=== PATIENT | female | born 1950 | race Caucasian/White ===

== ENCOUNTER 2018-12-04 18:51 | Emergency (ER) | payer MEDICARE ==
[~2018-12-04] VITALS: Ht 152.4 cm; Wt 65.8 kg
[~2018-12-04 18:51] MED LIST: ACET325 PO; ALPR.5 PO; BETA GEST PO; Budeprion Xl300 MG PO; CYCL10 PO; HYDACE10B PO; HYDSUL200 PO; IBUP600 PO; Keflex500 MG PO; LEUC5 PO; LOSARTAN-HCTZ1 EACH PO; METH10 PO; METTREX2.5 PO; OMEP20ER PO; PROLIA60 MG/1 ML SQ; Vitamin D2000 UNIT PO; Voltaren100 GM TP
== END 2018-12-04 21:05 | disposition home or self-care (01) ==
LOC: ER 18:51
DX: S81.812A Laceration without foreign body, left lower leg, initial encounter (principal); Z88.0 Allergy status to penicillin; Z88.2 Allergy status to sulfonamides; W45.8XXA Other foreign body or object entering through skin, initial encounter
CPT/HCPCS: 12004; 90471; 90714; 99282-25

== ENCOUNTER → 2018-12-09 | Outpatient (CLI) | payer MEDICARE | END | disposition home or self-care (01) | LOC: LAB SHORT 12:27 → LAB EV 12:27 | DX: L08.9 Local infection of the skin and subcutaneous tissue, unspecified (principal) | CPT/HCPCS: 87070; 87077; 87147; 87186; 87205 ==

== ENCOUNTER → 2018-12-31 | Outpatient (CLI) | payer MEDICARE ==
[2018-12-31 14:08] LABS: Anion Gap 8 mmol/L (6-16); Blood Urea Nitrogen 24 mg/dL (8-24); Bun/Creatinine Ratio 31.2 (12.0-20.0); CO2, Blood 31 mmol/L (21-32); Calcium, Blood 9.7 mg/dL (8.5-10.1); Chloride, Blood 103 mmol/L (98-108); Creatinine, Blood 0.77 mg/dL (0.40-1.00); Glomerular Filtration Rate >60 (60-); Glucose, Blood 86 mg/dL (70-99); Potassium, Blood 3.7 mmol/L (3.5-5.5); Sodium, Blood 142 mmol/L (136-145)
== END | disposition home or self-care (01) ==
LOC: LAB EV 13:52 → LAB SHORT 13:52
PROVIDERS: Physician Assistant
DX: B02.9 Zoster without complications (principal)
CPT/HCPCS: 80048

== ENCOUNTER 2019-01-07 12:02 | Day surgery (SDC) | payer MEDICARE | END 2019-01-07 23:09 | disposition home or self-care (01) | LOC: WOUND 12:02 | DX: L97.821 Non-pressure chronic ulcer of other part of left lower leg limited to breakdown of skin (principal); I87.2 Venous insufficiency (chronic) (peripheral); I10 Essential (primary) hypertension; M32.9 Systemic lupus erythematosus, unspecified; M06.9 Rheumatoid arthritis, unspecified | CPT/HCPCS: G0463 ==

== ENCOUNTER 2019-01-12 13:58 | Day surgery (SDC) | payer MEDICARE | END 2019-01-12 22:51 | disposition home or self-care (01) | LOC: WOUND 13:58 | PROC: 0JBP0ZZ Excision of Left Lower Leg Subcutaneous Tissue and Fascia, Open Approach (ICD-10-PCS; principal; 2019-01-12) | DX: L97.821 Non-pressure chronic ulcer of other part of left lower leg limited to breakdown of skin (principal); I87.2 Venous insufficiency (chronic) (peripheral); D64.9 Anemia, unspecified; I10 Essential (primary) hypertension; L93.0 Discoid lupus erythematosus; M06.9 Rheumatoid arthritis, unspecified; M19.90 Unspecified osteoarthritis, unspecified site; G62.9 Polyneuropathy, unspecified; H26.9 Unspecified cataract ==

== ENCOUNTER 2019-01-22 10:06 | Day surgery (SDC) | payer MEDICARE | END 2019-01-22 22:57 | disposition home or self-care (01) | LOC: WOUND 10:06 | PROC: 0HDLXZZ Extraction of Left Lower Leg Skin, External Approach (ICD-10-PCS; principal; 2019-01-22) | DX: L97.822 Non-pressure chronic ulcer of other part of left lower leg with fat layer exposed (principal); I87.2 Venous insufficiency (chronic) (peripheral); L93.0 Discoid lupus erythematosus; I10 Essential (primary) hypertension; M06.9 Rheumatoid arthritis, unspecified; Z79.899 Other long term (current) drug therapy ==

== ENCOUNTER 2019-01-30 01:02 | Day surgery (SDC) | payer MEDICARE | END 2019-01-30 23:49 | disposition home or self-care (01) | LOC: WOUND 01:02 | DX: L97.822 Non-pressure chronic ulcer of other part of left lower leg with fat layer exposed (principal); M06.9 Rheumatoid arthritis, unspecified; I87.2 Venous insufficiency (chronic) (peripheral); I10 Essential (primary) hypertension ==

== ENCOUNTER 2019-02-13 09:52 | Day surgery (SDC) | payer MEDICARE | END 2019-02-13 23:26 | disposition home or self-care (01) | LOC: WOUND 09:52 | DX: L97.822 Non-pressure chronic ulcer of other part of left lower leg with fat layer exposed (principal); I87.2 Venous insufficiency (chronic) (peripheral); I10 Essential (primary) hypertension; D64.9 Anemia, unspecified ==

== ENCOUNTER 2019-02-20 10:10 | Day surgery (SDC) | payer MEDICARE | END 2019-02-20 23:24 | disposition home or self-care (01) | LOC: WOUND 10:10 | DX: L97.822 Non-pressure chronic ulcer of other part of left lower leg with fat layer exposed (principal); I87.2 Venous insufficiency (chronic) (peripheral); I10 Essential (primary) hypertension; M06.9 Rheumatoid arthritis, unspecified ==

== ENCOUNTER 2019-03-06 10:07 | Day surgery (SDC) | payer MEDICARE | END 2019-03-06 23:15 | disposition home or self-care (01) | LOC: WOUND 10:07 | DX: L97.821 Non-pressure chronic ulcer of other part of left lower leg limited to breakdown of skin (principal); I87.2 Venous insufficiency (chronic) (peripheral); I10 Essential (primary) hypertension | CPT/HCPCS: G0463 ==

== ENCOUNTER → 2019-08-19 | Outpatient (CLI) | payer MEDICARE | END | disposition home or self-care (01) | LOC: LAB SHORT 14:41 → PLD 14:41 | DX: L81.9 Disorder of pigmentation, unspecified (principal); L30.8 Other specified dermatitis | CPT/HCPCS: 88305 ==

== ENCOUNTER 2020-03-16 06:14 | Day surgery (SDC) | payer MEDICARE ==
[~2020-03-16] VITALS: Ht 152.4 cm; Wt 54.2 kg
[~2020-03-16 06:14] MED LIST changes: +BUTALB-ACETAMI1 EAC5 PO; +Cymbalta20 MG PT; -METTREX2.5 PO; +METTREX2.5 SC; +PRED20 PO; +Remicade100 MG IV; +TRAZ50 PO
--- NOTE | 2020-03-16 07:13 | NUR ---
03/16/20 0713 Alicia Doss CALL LIGHT WITHIN REACH. FAMILY AT BEDSIDE.
== END 2020-03-16 08:26 | disposition home or self-care (01) ==
LOC: ORSCSDS 06:14
PROVIDERS: Ophthalmology
PROC: 08RJ3JZ Replacement of Right Lens with Synthetic Substitute, Percutaneous Approach (ICD-10-PCS; principal; 2020-03-16 07:30)
DX: H25.11 Age-related nuclear cataract, right eye (principal); I10 Essential (primary) hypertension; Z79.899 Other long term (current) drug therapy
CPT/HCPCS: J2001; J2250; J3010; J3301; J7040; V2632

== ENCOUNTER 2020-04-13 06:20 | Day surgery (SDC) | payer MEDICARE | END 2020-04-13 08:07 | disposition home or self-care (01) | LOC: ORSCSDS 06:20 | PROC: 08RK3JZ Replacement of Left Lens with Synthetic Substitute, Percutaneous Approach (ICD-10-PCS; principal; 2020-04-13) | DX: H25.12 Age-related nuclear cataract, left eye (principal); I10 Essential (primary) hypertension; K21.9 Gastro-esophageal reflux disease without esophagitis; Z79.899 Other long term (current) drug therapy ==

== ENCOUNTER 2021-04-03 02:36 | Day surgery (SDC) | payer MEDICARE ==
[~2021-04-03 02:36] MED LIST changes: +ALPR1 PO; +BUPR150T2 PO; +BUTALB-CAFF-AC1 EACH PO; +FOLI1 PO; +HYDROCHLOROTH12.5 MG PO; +LOSA50 PO; +Norco 10-325 T1 EACH PO; +PROLIA60 MG/1 ML; +RENFLEXIS100 MG; +XATMEP2.5 MG/1 M PO
== END 2021-04-03 23:02 | disposition home or self-care (01) ==
LOC: WOUND 02:36
DX: L97.821 Non-pressure chronic ulcer of other part of left lower leg limited to breakdown of skin (principal); I87.2 Venous insufficiency (chronic) (peripheral); I10 Essential (primary) hypertension
CPT/HCPCS: A9270; G0463

== ENCOUNTER 2021-04-10 05:02 | Day surgery (SDC) | payer MEDICARE | END 2021-04-10 23:38 | disposition home or self-care (01) | LOC: WOUND 05:02 | DX: L97.822 Non-pressure chronic ulcer of other part of left lower leg with fat layer exposed (principal); I87.2 Venous insufficiency (chronic) (peripheral); I10 Essential (primary) hypertension | CPT/HCPCS: A9270 ==

== ENCOUNTER 2021-04-19 09:49 | Day surgery (SDC) | payer MEDICARE | END 2021-04-19 23:06 | disposition home or self-care (01) | LOC: WOUND 09:49 | DX: L97.821 Non-pressure chronic ulcer of other part of left lower leg limited to breakdown of skin (principal); I87.2 Venous insufficiency (chronic) (peripheral); I10 Essential (primary) hypertension; M06.9 Rheumatoid arthritis, unspecified; Z88.2 Allergy status to sulfonamides; Z88.8 Allergy status to other drugs, medicaments and biological substances | CPT/HCPCS: A9270; G0463 ==

== ENCOUNTER 2021-05-03 04:38 | Day surgery (SDC) | payer MEDICARE | END 2021-05-03 23:00 | disposition home or self-care (01) | LOC: WOUND 04:38 | DX: L97.822 Non-pressure chronic ulcer of other part of left lower leg with fat layer exposed (principal); I87.2 Venous insufficiency (chronic) (peripheral); I10 Essential (primary) hypertension; M06.9 Rheumatoid arthritis, unspecified; Z98.1 Arthrodesis status; Z79.52 Long term (current) use of systemic steroids; Z79.899 Other long term (current) drug therapy | CPT/HCPCS: A9270 ==

== ENCOUNTER 2021-05-10 01:12 | Day surgery (SDC) | payer MEDICARE | END 2021-05-10 23:19 | disposition home or self-care (01) | LOC: WOUND 01:12 | DX: L97.822 Non-pressure chronic ulcer of other part of left lower leg with fat layer exposed (principal); I87.2 Venous insufficiency (chronic) (peripheral); I10 Essential (primary) hypertension; M06.9 Rheumatoid arthritis, unspecified; Z88.0 Allergy status to penicillin; Z88.2 Allergy status to sulfonamides; Z88.6 Allergy status to analgesic agent; Z88.8 Allergy status to other drugs, medicaments and biological substances | CPT/HCPCS: A9270; G0463 ==

== ENCOUNTER 2021-05-17 02:28 | Day surgery (SDC) | payer MEDICARE | END 2021-05-17 12:00 | disposition home or self-care (01) | LOC: WOUND 02:28 | DX: L97.821 Non-pressure chronic ulcer of other part of left lower leg limited to breakdown of skin (principal); I87.2 Venous insufficiency (chronic) (peripheral) | CPT/HCPCS: A9270 ==

== ENCOUNTER 2021-05-31 03:20 | Day surgery (SDC) | payer MEDICARE | END 2021-05-31 23:52 | disposition home or self-care (01) | LOC: WOUND 03:20 | DX: L97.821 Non-pressure chronic ulcer of other part of left lower leg limited to breakdown of skin (principal); I87.2 Venous insufficiency (chronic) (peripheral); I10 Essential (primary) hypertension | CPT/HCPCS: A9270; G0463 ==

== ENCOUNTER 2023-05-17 04:46 | Day surgery (SDC) | payer MEDICARE | END 2023-05-17 22:52 | disposition home or self-care (01) | LOC: WOUND 04:46 | DX: L97.822 Non-pressure chronic ulcer of other part of left lower leg with fat layer exposed (principal); I87.2 Venous insufficiency (chronic) (peripheral); I10 Essential (primary) hypertension; M06.9 Rheumatoid arthritis, unspecified; Z88.0 Allergy status to penicillin; Z88.2 Allergy status to sulfonamides; Z88.8 Allergy status to other drugs, medicaments and biological substances | CPT/HCPCS: A9270; G0463 ==

== ENCOUNTER 2023-05-24 01:55 | Day surgery (SDC) | payer MEDICARE | END 2023-05-24 22:50 | disposition home or self-care (01) | LOC: WOUND 01:55 | DX: L97.822 Non-pressure chronic ulcer of other part of left lower leg with fat layer exposed (principal); E89.820 Postprocedural hematoma of an endocrine system organ or structure following an endocrine system procedure; I73.9 Peripheral vascular disease, unspecified; I10 Essential (primary) hypertension; M05.70 Rheumatoid arthritis with rheumatoid factor of unspecified site without organ or systems involvement; L93.0 Discoid lupus erythematosus; M06.9 Rheumatoid arthritis, unspecified | CPT/HCPCS: A9270 ==

== ENCOUNTER 2023-06-03 01:52 | Day surgery (SDC) | payer MEDICARE | END 2023-06-03 23:03 | disposition home or self-care (01) | LOC: WOUND 01:52 | DX: L97.822 Non-pressure chronic ulcer of other part of left lower leg with fat layer exposed (principal); L03.115 Cellulitis of right lower limb; L97.812 Non-pressure chronic ulcer of other part of right lower leg with fat layer exposed; E89.820 Postprocedural hematoma of an endocrine system organ or structure following an endocrine system procedure; I73.9 Peripheral vascular disease, unspecified; I10 Essential (primary) hypertension; M05.70 Rheumatoid arthritis with rheumatoid factor of unspecified site without organ or systems involvement | CPT/HCPCS: A9270; G0463 ==

== ENCOUNTER 2023-06-11 13:43 | Inpatient (IN) | payer MEDICARE ==
[~2023-06-11] VITALS: Ht 149.9 cm; Wt 47.9 kg
[2023-06-11 15:05] VITALS: BP 130/71
[2023-06-11] MEDS ORDERED: ALPR.5 PO (15:58)
[2023-06-11] MEDS ORDERED: FOLI1 PO (15:59)
[2023-06-11] MEDS ORDERED: HYDCHL50 PO (16:00)
[2023-06-11] MEDS ORDERED: Hydrocodone-Acetamin PO (16:01)
[2023-06-11] MEDS ORDERED: PLAQUENIL200 M1 PO (16:02)
[2023-06-11] MEDS ORDERED: LOSARTAN POTAS100 M1 PO (16:03)
[2023-06-11] MEDS ORDERED: DOLOPHINE HCL10 MG PO (16:04)
[2023-06-11] MEDS ORDERED: OMEP20ER PO (16:05)
[2023-06-11] MEDS ORDERED: ONDA4ODT MM (16:06)
[2023-06-11] MEDS ORDERED: DELTASONE20 MG PO (16:07)
[2023-06-11 16:16] LABS: Hematocrit 30.7 % (33.0-51.0); Hemoglobin 9.2 g/dL (11.5-16.0); Mean Corpuscular HGB 27.4 pg (26.0-34.0); Mean Corpuscular Volume 91 fL (80-100); NRBC ABSOLUTE 0.02 K/mm3 (0.00-0.02); NRBC Auto 0.1 /100 WBC (0.0-0.2); Platelet Count 437 K/mm3 (150-400); RDW Standard Deviation 55.9 fL (35.1-46.3); Red Blood Cell Count 3.36 M/mm3 (3.80-5.20); White Blood Cell Count 19.21 K/mm3 (4.00-11.30)
[2023-06-11 16:39] LABS: BASOPHILS PERCENT MAN 0 % (0-2); EOSINOPHILS PERCENT MAN 0 % (0-6); LYMPHOCYTES ABSOLUTE MAN 0.38 K/mm3 (0.84-5.20); LYMPHOCYTES PERCENT MAN 2 % (21-46); METAMYELOCYTE ABSOLUTE MAN 0.19 K/mm3 (0.00-0.00); METAMYELOCYTE PERCENT MAN 1 % (0-0); MONOCYTES ABSOLUTE MAN 0.96 K/mm3 (0.16-1.47); MONOCYTES PERCENT MAN 5 % (4-13); MYELOCYTE ABSOLUTE MAN 1.15 K/mm3 (0.00-0.00); MYELOCYTE PERCENT MAN 6 % (0-0); NEUTROPHILS ABSOLUTE MAN 16.52 K/mm3 (1.96-9.15); SEG NEUTROPHILS PERCENT MAN 86 % (41-73); TOTAL CELLS COUNTED 100
[2023-06-11 16:45] LABS: Albumin, Blood 2.6 g/dL (3.4-5.0); Albumin/Globulin Ratio 0.6 (0.8-1.8); Bilirubin, Total 0.3 mg/dL (0.1-1.0); Bun/Creatinine Ratio 30.6 (12.0-20.0); C-REACTIVE PROTEIN, EXT RANGE 16.1 mg/dL (0.000-0.300); Creatinine, Blood 0.65 mg/dL (0.40-1.00); Globulin, Blood 4.1 g/dL (2.2-4.0); Potassium, Blood 3.8 mmol/L (3.5-5.5); Total Protein, Blood 6.7 g/dL (6.4-8.2)
--- NOTE | 2023-06-11 18:11 | NUR ---
SHIFT SUMMARY; PATIENT IS LATE ADMIT THIS AFTERNOON. SHE HAS CELLULITIS OF BOTH BILATERAL LOWER EXTREMITIES WORSE ON RIGHT. DRESSING CHANGES DONE WHEN (ADMITTING MD) IN ROOM. WOUND CULTURES ORDERED AND COLLECTED. PATIENT IS AO X 4 ON ARRIVAL IN WHEEL CHAIR. SHE IS VERY PAINFULL AND UNABLE TO STAND WITHOUT ASSIST AND MUST BE TURNED AND MOVED UP IN BED. 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 SHE SAYS HER OTHER SHOULDER IS PAINFULL BUT DOES NOT REMEMBER WHAT SHE DID TO IT. DECISION TO PLACE PATIENT ON BEDREST SINCE SHE CANNOT TURN HERSELF AND IT HURTS FOR HER TO SIT UP TO LONG. PICTURES OF BOTH LOWER LIMBS ARE IN CHART.
[2023-06-11 19:24] VITALS: BP 122/64
[2023-06-12 03:33] VITALS: BP 117/64
--- NOTE | 2023-06-12 04:22 | NUR ---
SHIFT SUMMARY ADMITTED FOR BLE CELLULITIS. DNR CODE. IV ANTIB RX ARE SCHEDULED. SHE LIVES WITH HER AND PLANS TO RETURN THERE WHEN STABLE FOR DC. SHE HAS A HX OF TAKING METHOTREXATE, AND STILL ON PREDNISONE. HX OF MULTIPLE SURGERIES, CHRONIC PAIN, DEGENERATIVE JOINTS, RA, AND LUPUS.
[2023-06-12 05:32] LABS: Hematocrit 26.8 % (33.0-51.0); Hemoglobin 7.9 g/dL (11.5-16.0); Mean Corpuscular HGB 27.1 pg (26.0-34.0); Mean Corpuscular HGB Conc 29.5 g/dL (31.5-36.5); Mean Corpuscular Volume 92 fL (80-100); Mean Platelet Volume 11.4 fL (9.1-12.4); NRBC ABSOLUTE 0.03 K/mm3 (0.00-0.02); NRBC Auto 0.2 /100 WBC (0.0-0.2); Platelet Count 391 K/mm3 (150-400); RDW Coefficient Variation 16.9 % (11.7-14.2); RDW Standard Deviation 55.7 fL (35.1-46.3); Red Blood Cell Count 2.91 M/mm3 (3.80-5.20); White Blood Cell Count 14.28 K/mm3 (4.00-11.30)
[2023-06-12 05:48] LABS: Albumin, Blood 2.2 g/dL (3.4-5.0); Albumin/Globulin Ratio 0.6 (0.8-1.8); Bilirubin, Total 0.3 mg/dL (0.1-1.0); Bun/Creatinine Ratio 25.5 (12.0-20.0); C-REACTIVE PROTEIN, EXT RANGE 13.1 mg/dL (0.000-0.300); Calcium, Blood 8.4 mg/dL (8.5-10.1); Creatinine, Blood 0.63 mg/dL (0.40-1.00); Globulin, Blood 3.5 g/dL (2.2-4.0); Potassium, Blood 3.7 mmol/L (3.5-5.5); Total Protein, Blood 5.7 g/dL (6.4-8.2)
[2023-06-12 06:07] LABS: BAND PERCENT MAN 1 % (0-8); BASOPHILS ABSOLUTE MAN 0.14 K/mm3 (0.00-0.23); BASOPHILS PERCENT MAN 1 % (0-2); EOSINOPHILS PERCENT MAN 0 % (0-6); LYMPHOCYTES ABSOLUTE MAN 0.71 K/mm3 (0.84-5.20); LYMPHOCYTES PERCENT MAN 5 % (21-46); METAMYELOCYTE ABSOLUTE MAN 0.14 K/mm3 (0.00-0.00); METAMYELOCYTE PERCENT MAN 1 % (0-0); MONOCYTES ABSOLUTE MAN 0.99 K/mm3 (0.16-1.47); MONOCYTES PERCENT MAN 7 % (4-13); NEUTROPHILS ABSOLUTE MAN 12.28 K/mm3 (1.96-9.15); SEG NEUTROPHILS PERCENT MAN 85 % (41-73); TOTAL CELLS COUNTED 100
[2023-06-12 07:08] VITALS: BP 110/62
[2023-06-12 09:03] VITALS: BP 109/58
[2023-06-12 15:21] VITALS: BP 127/69
--- NOTE | 2023-06-12 18:00 | NUR ---
SHIFT SUMMARY- PT ALERT AND ORIENTED AND IS ABLE TO DIRECT HER CARE NEEDS. PT CALLS APPROPRIATELY. PT IS NOW A 1PA WITH TRANSFERS TO THE [facility]. IV INFILTRATED IN THE RIGHT AC AND THE PT ACCIDENTALLY PULLED IT. NEW IV PLACED IN THE LEFT AC, GOOD BLOOD RETURN FLUSHES WELL. PT IS CURRENTLY SITTING UP IN THE CHAIR WITH THE CALL LIGHT IN REACH EATING HER DINNER, SHE WORKED WITH ANDI FROM [facility]YSICAL [facility]ER[facility] THIS EVENING. THIS RN ENCOURAGED HER TO STAY UP IN THE CHAIR TO EAT THEN STAFF CAN ASSIST HER BACK TO BED. NO CURRENT S&S OF DISTRESS.
--- NOTE | 2023-06-12 18:27 | NUR ---
"Spiritual Care Attempted | Pt. Request Pt. is sitting up in a chair and intiially welcomes my visit. As introductions were being made, family member arrived to visit. Pt. request that one of the chaplains visit her on ."
[2023-06-12 19:41] VITALS: BP 139/80
[2023-06-13 03:35] LABS: Vancomycin, Trough 14.7 ug/mL (5.0-10.0)
[2023-06-13 03:54] LABS: Creatinine, Blood 0.64 mg/dL (0.40-1.00)
[2023-06-13 04:25] VITALS: BP 125/72
--- NOTE | 2023-06-13 07:24 | NUR ---
SHIFT SUMMARY ADMITTED FOR BLE CELLULITIS. DNR CODE. IV ANTIB RX ARE SCHEDULED. WOUND CARE IS CONSULTED. SHE IS A&O X4. AND NOW A STANDBY ASSIST TO BSC. HER MOVEMENT HAS DRAMATICALLY IMPROVED. SHE IS ON RA. REGULAR DIET. SHE WILL RETURN HOME WITH HER WHEN STABLE. PAIN RX GIVEN
[2023-06-13 07:58] VITALS: BP 125/70
[2023-06-13 08:51] LABS: Albumin, Blood 2.4 g/dL (3.4-5.0); Albumin/Globulin Ratio 0.6 (0.8-1.8); Bilirubin, Total 0.2 mg/dL (0.1-1.0); Bun/Creatinine Ratio 20.9 (12.0-20.0); C-REACTIVE PROTEIN, EXT RANGE 8.44 mg/dL (0.000-0.300); Calcium, Blood 9.1 mg/dL (8.5-10.1); Creatinine, Blood 0.62 mg/dL (0.40-1.00); Globulin, Blood 3.8 g/dL (2.2-4.0); Potassium, Blood 3.8 mmol/L (3.5-5.5); Total Protein, Blood 6.2 g/dL (6.4-8.2)
[2023-06-13 09:07] LABS: Hematocrit 30.8 % (33.0-51.0); Hemoglobin 9.2 g/dL (11.5-16.0); Mean Corpuscular HGB 27.1 pg (26.0-34.0); Mean Corpuscular HGB Conc 29.9 g/dL (31.5-36.5); Mean Corpuscular Volume 91 fL (80-100); Mean Platelet Volume 10.9 fL (9.1-12.4); NRBC ABSOLUTE 0.05 K/mm3 (0.00-0.02); NRBC Auto 0.4 /100 WBC (0.0-0.2); Platelet Count 494 K/mm3 (150-400); RDW Coefficient Variation 17.1 % (11.7-14.2); RDW Standard Deviation 56.4 fL (35.1-46.3); Red Blood Cell Count 3.39 M/mm3 (3.80-5.20); White Blood Cell Count 13.93 K/mm3 (4.00-11.30)
[2023-06-13 10:27] LABS: BASOPHILS PERCENT MAN 0 % (0-2); EOSINOPHILS PERCENT MAN 0 % (0-6); LYMPHOCYTES ABSOLUTE MAN 1.25 K/mm3 (0.84-5.20); LYMPHOCYTES PERCENT MAN 9 % (21-46); METAMYELOCYTE ABSOLUTE MAN 0.13 K/mm3 (0.00-0.00); METAMYELOCYTE PERCENT MAN 1 % (0-0); MONOCYTES ABSOLUTE MAN 0.41 K/mm3 (0.16-1.47); MONOCYTES PERCENT MAN 3 % (4-13); MYELOCYTE ABSOLUTE MAN 0.55 K/mm3 (0.00-0.00); MYELOCYTE PERCENT MAN 4 % (0-0); NEUTROPHILS ABSOLUTE MAN 11.56 K/mm3 (1.96-9.15); SEG NEUTROPHILS PERCENT MAN 83 % (41-73); TOTAL CELLS COUNTED 100
--- NOTE | 2023-06-13 10:32 | NUR ---
CALLED DR HIGH- PT METHADONE DOSE AT HOME IS 20MG PO TID HERE SHE HAS BEEN RECIEVING 10MG PO TID. PT ALSO HAS NORCO AT HOME Q4. PT ASKED ABOUT THE DOSE ON THE METHADONE THIS MORNING. SPOKE TO AND THE MED ORDER WAS CHANGED TO MATCH THE PT HOME DOSE.
[2023-06-13 15:21] VITALS: BP 122/66
--- NOTE | 2023-06-13 18:47 | NUR ---
SHIFT SUMMARY- PT HAD WOUND CARE TO SEE HER TODAY. THEY INITIATED WOUND CARE WITH [facility]. PT HAS HAD A LOT OF ACHES AND DISCOMFORT TODAY. MEDICATED WITH NORCO TWICE. SPOKE TO MD, HOME DOSE OF METHEDONE WAS ORDERED TODAY. PT IS CURRENTLY SITTING UP IN THE CHAIR EATING DINNER, FAMILY AT THE BEDSIDE. PT WOULD LIKE XANAX WITH EVENING MEDS, SHE HAS MENTIONED FEELING ANXIOUS THIS AFTERNOON HOWEVER HER XANAX ORDER IS FOR SLEEP.
[2023-06-13 19:50] VITALS: BP 114/64
[2023-06-14 03:03] VITALS: BP 122/68
--- NOTE | 2023-06-14 04:00 | NUR ---
SHIFT SUMMARY PT A&O 3-4 AND RESPONDS APPROPRIATELY TO QUESTIONS. USES CALL LIGHT APPROPRIATELY. PT RECEIVED IV ANTIBIOTICS AND TOLERATED IINTERVENTION WELL. PT TO HAVE POWERGLIDE INSERTED. NO ACUTE EVENTS DURING SHIFT. VSS. PT LEFT IN A POSITION OF SAFETY WITH FALL PREVENTIONS IN PLACE AND CALL LIGHT WITHIN REACH.
[2023-06-14 05:14] LABS: Hematocrit 28.3 % (33.0-51.0); Hemoglobin 8.5 g/dL (11.5-16.0); Mean Corpuscular HGB 27.5 pg (26.0-34.0); Mean Corpuscular Volume 92 fL (80-100); Mean Platelet Volume 11.3 fL (9.1-12.4); NRBC ABSOLUTE 0.06 K/mm3 (0.00-0.02); NRBC Auto 0.5 /100 WBC (0.0-0.2); Platelet Count 442 K/mm3 (150-400); Red Blood Cell Count 3.09 M/mm3 (3.80-5.20); White Blood Cell Count 12.96 K/mm3 (4.00-11.30)
[2023-06-14 06:04] LABS: Bun/Creatinine Ratio 21.7 (12.0-20.0); C-REACTIVE PROTEIN, EXT RANGE 6.27 mg/dL (0.000-0.300); Calcium, Blood 8.9 mg/dL (8.5-10.1); Creatinine, Blood 0.65 mg/dL (0.40-1.00); Potassium, Blood 3.4 mmol/L (3.5-5.5)
[2023-06-14 07:49] VITALS: BP 99/59
[2023-06-14 08:07] LABS: BAND PERCENT MAN 1 % (0-8); BASOPHILS PERCENT MAN 0 % (0-2); EOSINOPHILS PERCENT MAN 0 % (0-6); LYMPHOCYTES ABSOLUTE MAN 0.77 K/mm3 (0.84-5.20); LYMPHOCYTES PERCENT MAN 6 % (21-46); MONOCYTES ABSOLUTE MAN 1.03 K/mm3 (0.16-1.47); MONOCYTES PERCENT MAN 8 % (4-13); MYELOCYTE ABSOLUTE MAN 0.25 K/mm3 (0.00-0.00); MYELOCYTE PERCENT MAN 2 % (0-0); NEUTROPHILS ABSOLUTE MAN 10.88 K/mm3 (1.96-9.15); SEG NEUTROPHILS PERCENT MAN 83 % (41-73); TOTAL CELLS COUNTED 100
[2023-06-14 11:44] LABS: Influenza A, PCR NEGATIVE (NEGATIVE); Influenza B, PCR NEGATIVE (NEGATIVE); Resp Syncytial Virus, PCR NEGATIVE (NEGATIVE); SARS-Cov-2 (COVID-19) PCR, MMC NEGATIVE (NEGATIVE)
[2023-06-14] MEDS ORDERED: PRED5 PO (12:16)
[2023-06-14] MEDS ORDERED: CEFAZOLIN SODIUM1 G1 IV (12:17)
[2023-06-14 14:10] VITALS: BP 118/57
--- NOTE | 2023-06-14 16:37 | NUR ---
DISCHARGE SUMMARY: PT DISCHARGED TO [facility]. GAVE REPORT TO CLARA RUIZ. PT PICKED UP BY [facility] [employer]. ASSISTED PT WITH GETTING DRESSED AND PACKING HER BELONGINGS. PT SENT WITH PAPERWORK FOR UV[facility].
[2023-06-16 11:22] LABS: HEMOGLOBIN A1C 6.1 % (4.8-5.6)
== END 2023-06-14 16:27 | DRG 603 ==
LOC: MEDS 13:43 → ENPENDDIS 06-14 11:38 → MEDS 06-14 16:27
PROVIDERS: Internal Medicine; ADMIT Family Medicine
DX: L03.115 Cellulitis of right lower limb (principal); L97.929 Non-pressure chronic ulcer of unspecified part of left lower leg with unspecified severity; L97.919 Non-pressure chronic ulcer of unspecified part of right lower leg with unspecified severity; D84.821 Immunodeficiency due to drugs; I10 Essential (primary) hypertension; M06.9 Rheumatoid arthritis, unspecified; M32.9 Systemic lupus erythematosus, unspecified; Z66 Do not resuscitate; T38.0X5A Adverse effect of glucocorticoids and synthetic analogues, initial encounter; B95.61 Methicillin susceptible Staphylococcus aureus infection as the cause of diseases classified elsewhere; M15.9 Polyosteoarthritis, unspecified; G89.4 Chronic pain syndrome; F41.9 Anxiety disorder, unspecified; M81.0 Age-related osteoporosis without current pathological fracture; E55.9 Vitamin D deficiency, unspecified; G43.909 Migraine, unspecified, not intractable, without status migrainosus; F32.A Depression, unspecified; Z96.611 Presence of right artificial shoulder joint; Z88.8 Allergy status to other drugs, medicaments and biological substances; Z98.1 Arthrodesis status; Z88.0 Allergy status to penicillin; Z88.2 Allergy status to sulfonamides; Z88.6 Allergy status to analgesic agent; Z79.52 Long term (current) use of systemic steroids; Z79.891 Long term (current) use of opiate analgesic; Z79.620 Long term (current) use of immunosuppressive biologic; Z79.631 Long term (current) use of antimetabolite agent; Z11.52 Encounter for screening for COVID-19
CPT/HCPCS: 0241U; 36415; 80048; 80053; 80202; 82565; 83036; 85025; 85651; 86140; 87070; 87075; 87077; 87147; 87186; 87205; 97110; 97112; 97116; 97162; 97165; 97530; 97535; A9270; J0690; J0692; J1650; J3370; J7030; J7512

== ENCOUNTER 2023-07-01 00:34 | Day surgery (SDC) | payer MEDICARE ==
[~2023-07-01 00:34] MED LIST changes: +CEFAZOLIN SODIUM1 G1 IV; +DELTASONE20 MG PO; +DOLOPHINE HCL10 MG PO; +HYDCHL50 PO; +Hydrocodone-Acetamin PO; +LOSARTAN POTAS100 M1 PO; +ONDA4ODT MM; +PLAQUENIL200 M1 PO; +PRED5 PO
== END 2023-07-01 22:55 | disposition home or self-care (01) ==
LOC: WOUND 00:34
DX: L03.115 Cellulitis of right lower limb (principal); L97.812 Non-pressure chronic ulcer of other part of right lower leg with fat layer exposed; I87.2 Venous insufficiency (chronic) (peripheral); L97.822 Non-pressure chronic ulcer of other part of left lower leg with fat layer exposed; L97.222 Non-pressure chronic ulcer of left calf with fat layer exposed; E89.820 Postprocedural hematoma of an endocrine system organ or structure following an endocrine system procedure; I10 Essential (primary) hypertension; M05.70 Rheumatoid arthritis with rheumatoid factor of unspecified site without organ or systems involvement

== ENCOUNTER 2023-07-03 01:02 | Day surgery (SDC) | payer MEDICARE | END 2023-07-03 22:53 | disposition home or self-care (01) | LOC: WOUND 01:02 | DX: L97.222 Non-pressure chronic ulcer of left calf with fat layer exposed (principal); I73.9 Peripheral vascular disease, unspecified; I10 Essential (primary) hypertension; E89.820 Postprocedural hematoma of an endocrine system organ or structure following an endocrine system procedure; L03.115 Cellulitis of right lower limb; M05.70 Rheumatoid arthritis with rheumatoid factor of unspecified site without organ or systems involvement | CPT/HCPCS: A9270; G0463 ==

== ENCOUNTER 2023-07-11 01:58 | Day surgery (SDC) | payer MEDICARE | END 2023-07-11 22:54 | disposition home or self-care (01) | LOC: WOUND 01:58 | DX: L97.222 Non-pressure chronic ulcer of left calf with fat layer exposed (principal); E89.820 Postprocedural hematoma of an endocrine system organ or structure following an endocrine system procedure; I73.9 Peripheral vascular disease, unspecified; I10 Essential (primary) hypertension; M05.70 Rheumatoid arthritis with rheumatoid factor of unspecified site without organ or systems involvement; L03.115 Cellulitis of right lower limb | CPT/HCPCS: G0463 ==

== ENCOUNTER 2023-07-26 02:56 | Day surgery (SDC) | payer MEDICARE | END 2023-07-26 22:52 | disposition home or self-care (01) | LOC: WOUND 02:56 | DX: L03.115 Cellulitis of right lower limb (principal); L97.213 Non-pressure chronic ulcer of right calf with necrosis of muscle; L97.222 Non-pressure chronic ulcer of left calf with fat layer exposed; E89.820 Postprocedural hematoma of an endocrine system organ or structure following an endocrine system procedure; I73.9 Peripheral vascular disease, unspecified; I10 Essential (primary) hypertension; M05.70 Rheumatoid arthritis with rheumatoid factor of unspecified site without organ or systems involvement | CPT/HCPCS: G0463 ==

== ENCOUNTER 2023-08-02 01:29 | Day surgery (SDC) | payer MEDICARE | END 2023-08-02 22:54 | disposition home or self-care (01) | LOC: WOUND 01:29 | DX: L97.213 Non-pressure chronic ulcer of right calf with necrosis of muscle (principal); L97.222 Non-pressure chronic ulcer of left calf with fat layer exposed; E89.820 Postprocedural hematoma of an endocrine system organ or structure following an endocrine system procedure; I73.9 Peripheral vascular disease, unspecified; I10 Essential (primary) hypertension; M05.70 Rheumatoid arthritis with rheumatoid factor of unspecified site without organ or systems involvement; L03.115 Cellulitis of right lower limb ==

== ENCOUNTER 2023-08-09 04:06 | Day surgery (SDC) | payer MEDICARE | END 2023-08-10 00:06 | disposition home or self-care (01) | LOC: WOUND 04:06 | DX: L03.115 Cellulitis of right lower limb (principal); L97.213 Non-pressure chronic ulcer of right calf with necrosis of muscle; L97.222 Non-pressure chronic ulcer of left calf with fat layer exposed; E89.820 Postprocedural hematoma of an endocrine system organ or structure following an endocrine system procedure; I73.9 Peripheral vascular disease, unspecified; M05.70 Rheumatoid arthritis with rheumatoid factor of unspecified site without organ or systems involvement; I10 Essential (primary) hypertension | CPT/HCPCS: A9270 ==

== ENCOUNTER 2023-08-16 01:32 | Day surgery (SDC) | payer MEDICARE ==
[2023-08-16] MEDS ORDERED: Lidocaine HCl 4% Topical Soln 50 ML BTL ONE (15:28)
== END 2023-08-16 22:55 | disposition home or self-care (01) ==
LOC: WOUND 01:32
DX: L03.115 Cellulitis of right lower limb (principal); L97.813 Non-pressure chronic ulcer of other part of right lower leg with necrosis of muscle; L97.822 Non-pressure chronic ulcer of other part of left lower leg with fat layer exposed; E89.820 Postprocedural hematoma of an endocrine system organ or structure following an endocrine system procedure; E11.51 Type 2 diabetes mellitus with diabetic peripheral angiopathy without gangrene; I10 Essential (primary) hypertension; M05.70 Rheumatoid arthritis with rheumatoid factor of unspecified site without organ or systems involvement

== ENCOUNTER 2023-08-23 00:41 | Day surgery (SDC) | payer MEDICARE ==
[2023-08-23] MEDS ORDERED: Lidocaine HCl 4% Topical Soln 50 ML BTL ONE (13:51)
== END 2023-08-23 23:14 | disposition home or self-care (01) ==
LOC: WOUND 00:41
DX: L03.115 Cellulitis of right lower limb (principal); L97.822 Non-pressure chronic ulcer of other part of left lower leg with fat layer exposed; L97.813 Non-pressure chronic ulcer of other part of right lower leg with necrosis of muscle; I10 Essential (primary) hypertension; E89.820 Postprocedural hematoma of an endocrine system organ or structure following an endocrine system procedure; I73.9 Peripheral vascular disease, unspecified; M05.70 Rheumatoid arthritis with rheumatoid factor of unspecified site without organ or systems involvement

== ENCOUNTER 2023-08-30 02:00 | Day surgery (SDC) | payer MEDICARE ==
[2023-08-30] MEDS ORDERED: Lidocaine HCl 4% Cream 5 GM ONE ×2 (15:36→15:38)
== END 2023-08-30 23:09 | disposition home or self-care (01) ==
LOC: WOUND 02:00
DX: L97.213 Non-pressure chronic ulcer of right calf with necrosis of muscle (principal); L97.222 Non-pressure chronic ulcer of left calf with fat layer exposed; E89.820 Postprocedural hematoma of an endocrine system organ or structure following an endocrine system procedure; I73.9 Peripheral vascular disease, unspecified; I10 Essential (primary) hypertension; M05.70 Rheumatoid arthritis with rheumatoid factor of unspecified site without organ or systems involvement
CPT/HCPCS: A9270

== ENCOUNTER 2023-09-04 16:09 | Emergency (ER) | payer MEDICARE ==
[~2023-09-04] VITALS: Ht 149.9 cm; Wt 67.1 kg
[2023-09-04 16:55] LABS: BASOPHILS ABSOLUTE AUTO 0.16 K/mm3 (0.00-0.23); BASOPHILS PERCENT AUTO 1 % (0-2); EOSINOPHILS ABSOLUTE AUTO 0.05 K/mm3 (0.00-0.68); EOSINOPHILS PERCENT AUTO 0 % (0-6); Hematocrit 32.5 % (33.0-51.0); Hemoglobin 9.5 g/dL (11.5-16.0); IMMATURE GRAN ABSOLUTE AUTO 0.24 K/mm3 (0.00-0.10); IMMATURE GRAN PERCENT AUTO 2 % (0-1); LYMPHOCYTES ABSOLUTE AUTO 0.67 K/mm3 (0.84-5.20); LYMPHOCYTES PERCENT AUTO 5 % (21-46); MONOCYTES PERCENT AUTO 3 % (4-13); Mean Corpuscular HGB Conc 29.2 g/dL (31.5-36.5); Mean Corpuscular Volume 79 fL (80-100); Mean Platelet Volume 10.9 fL (9.1-12.4); NEUTROPHILS ABSOLUTE AUTO 10.94 K/mm3 (1.96-9.15); NEUTROPHILS PERCENT AUTO 88 % (41-73); Platelet Count 387 K/mm3 (150-400); RDW Coefficient Variation 17.5 % (11.7-14.2); RDW Standard Deviation 49.6 fL (35.1-46.3); Red Blood Cell Count 4.13 M/mm3 (3.80-5.20); White Blood Cell Count 12.46 K/mm3 (4.00-11.30)
[2023-09-04 17:17] LABS: Albumin, Blood 3.5 g/dL (3.4-5.0); Bilirubin, Total 0.2 mg/dL (0.1-1.0); Calcium, Blood 9.4 mg/dL (8.5-10.1); Creatinine, Blood 0.77 mg/dL (0.40-1.00); Globulin, Blood 3.5 g/dL (2.2-4.0); Potassium, Blood 3.8 mmol/L (3.5-5.5)
[2023-09-04 20:09] VITALS: BP 112/70
== END 2023-09-04 20:24 | disposition home or self-care (01) ==
LOC: ER 16:09
PROVIDERS: Physician Assistant
DX: S81.801A Unspecified open wound, right lower leg, initial encounter (principal); L08.9 Local infection of the skin and subcutaneous tissue, unspecified; M81.0 Age-related osteoporosis without current pathological fracture; Z79.52 Long term (current) use of systemic steroids; Z79.899 Other long term (current) drug therapy; Z88.0 Allergy status to penicillin; Z88.2 Allergy status to sulfonamides; Z88.8 Allergy status to other drugs, medicaments and biological substances; Z91.018 Allergy to other foods; X58.XXXA Exposure to other specified factors, initial encounter
CPT/HCPCS: 73590; 80053; 83605; 85025; 99283-25

== ENCOUNTER 2023-09-06 05:19 | Day surgery (SDC) | payer MEDICARE | END 2023-09-06 23:03 | disposition home or self-care (01) | LOC: WOUND 05:19 | DX: L97.213 Non-pressure chronic ulcer of right calf with necrosis of muscle (principal); L97.222 Non-pressure chronic ulcer of left calf with fat layer exposed; E89.820 Postprocedural hematoma of an endocrine system organ or structure following an endocrine system procedure; I73.9 Peripheral vascular disease, unspecified; I10 Essential (primary) hypertension; M05.70 Rheumatoid arthritis with rheumatoid factor of unspecified site without organ or systems involvement; L03.115 Cellulitis of right lower limb | CPT/HCPCS: G0463 ==

== ENCOUNTER 2023-11-08 04:12 | Day surgery (SDC) | payer MEDICARE | END 2023-11-09 23:05 | disposition home or self-care (01) | LOC: WOUND 04:12 | DX: L97.213 Non-pressure chronic ulcer of right calf with necrosis of muscle (principal); L97.222 Non-pressure chronic ulcer of left calf with fat layer exposed; E89.820 Postprocedural hematoma of an endocrine system organ or structure following an endocrine system procedure; I73.9 Peripheral vascular disease, unspecified; I10 Essential (primary) hypertension; M05.70 Rheumatoid arthritis with rheumatoid factor of unspecified site without organ or systems involvement; L03.115 Cellulitis of right lower limb | CPT/HCPCS: A6213; G0463 ==

== ENCOUNTER 2023-11-15 04:03 | Day surgery (SDC) | payer MEDICARE | END 2023-11-15 23:03 | disposition home or self-care (01) | LOC: WOUND 04:03 | DX: L03.115 Cellulitis of right lower limb (principal); L97.815 Non-pressure chronic ulcer of other part of right lower leg with muscle involvement without evidence of necrosis; L89.322 Pressure ulcer of left buttock, stage 2; I10 Essential (primary) hypertension; M06.9 Rheumatoid arthritis, unspecified; L97.213 Non-pressure chronic ulcer of right calf with necrosis of muscle; L97.222 Non-pressure chronic ulcer of left calf with fat layer exposed; E89.820 Postprocedural hematoma of an endocrine system organ or structure following an endocrine system procedure; I73.9 Peripheral vascular disease, unspecified; M05.70 Rheumatoid arthritis with rheumatoid factor of unspecified site without organ or systems involvement | CPT/HCPCS: G0463 ==

== ENCOUNTER 2023-11-22 05:19 | Day surgery (SDC) | payer MEDICARE | END 2023-11-22 22:43 | disposition home or self-care (01) | LOC: WOUND 05:19 | DX: L97.213 Non-pressure chronic ulcer of right calf with necrosis of muscle (principal); L97.222 Non-pressure chronic ulcer of left calf with fat layer exposed; L89.320 Pressure ulcer of left buttock, unstageable; I73.9 Peripheral vascular disease, unspecified; I10 Essential (primary) hypertension; M05.70 Rheumatoid arthritis with rheumatoid factor of unspecified site without organ or systems involvement; L03.115 Cellulitis of right lower limb ==

== ENCOUNTER → 2024-01-03 | Outpatient (CLI) | payer MEDICARE ==
[~2024-01-03] MED LIST changes: +CEPH500 PO
== END | disposition home or self-care (01) ==
LOC: LAB 16:28 → LAB SHORT 16:28
DX: I87.2 Venous insufficiency (chronic) (peripheral) (principal); L97.213 Non-pressure chronic ulcer of right calf with necrosis of muscle
CPT/HCPCS: 87070; 87075; 87077; 87186; 87205

== ENCOUNTER 2024-01-10 03:13 | Day surgery (SDC) | payer MEDICARE ==
[2024-01-10] MEDS ORDERED: Lidocaine HCl 4% Cream 5 GM ONE (11:10)
== END 2024-01-10 23:14 | disposition home or self-care (01) ==
LOC: WOUND 03:13
DX: L03.115 Cellulitis of right lower limb (principal); L89.324 Pressure ulcer of left buttock, stage 4; L97.813 Non-pressure chronic ulcer of other part of right lower leg with necrosis of muscle; L97.213 Non-pressure chronic ulcer of right calf with necrosis of muscle; L97.222 Non-pressure chronic ulcer of left calf with fat layer exposed; E89.820 Postprocedural hematoma of an endocrine system organ or structure following an endocrine system procedure; I10 Essential (primary) hypertension; I73.9 Peripheral vascular disease, unspecified; M05.70 Rheumatoid arthritis with rheumatoid factor of unspecified site without organ or systems involvement
CPT/HCPCS: A6213; A9270; G0463

== ENCOUNTER 2024-01-17 02:31 | Day surgery (SDC) | payer MEDICARE ==
[2024-01-17] MEDS ORDERED: Lidocaine HCl 4% Cream 5 GM ONE (11:00)
== END 2024-01-17 23:17 | disposition home or self-care (01) ==
LOC: WOUND 02:31
DX: L97.213 Non-pressure chronic ulcer of right calf with necrosis of muscle (principal); L89.324 Pressure ulcer of left buttock, stage 4; I73.9 Peripheral vascular disease, unspecified; I10 Essential (primary) hypertension; M05.70 Rheumatoid arthritis with rheumatoid factor of unspecified site without organ or systems involvement
CPT/HCPCS: A6213; A9270; G0463

== ENCOUNTER 2024-01-24 01:37 | Day surgery (SDC) | payer MEDICARE ==
[2024-01-24] MEDS ORDERED: Lidocaine HCl 4% Cream 5 GM ONE (10:57)
== END 2024-01-24 22:42 | disposition home or self-care (01) ==
LOC: WOUND 01:37
DX: L03.115 Cellulitis of right lower limb (principal); L89.324 Pressure ulcer of left buttock, stage 4; L97.213 Non-pressure chronic ulcer of right calf with necrosis of muscle; L97.222 Non-pressure chronic ulcer of left calf with fat layer exposed; E89.820 Postprocedural hematoma of an endocrine system organ or structure following an endocrine system procedure; I73.9 Peripheral vascular disease, unspecified; M05.70 Rheumatoid arthritis with rheumatoid factor of unspecified site without organ or systems involvement
CPT/HCPCS: A6213; A9270; G0463

== ENCOUNTER 2024-01-31 05:41 | Day surgery (SDC) | payer MEDICARE | END 2024-01-31 22:56 | disposition home or self-care (01) | LOC: WOUND 05:41 | DX: L97.213 Non-pressure chronic ulcer of right calf with necrosis of muscle (principal); L89.324 Pressure ulcer of left buttock, stage 4; L97.222 Non-pressure chronic ulcer of left calf with fat layer exposed; E89.820 Postprocedural hematoma of an endocrine system organ or structure following an endocrine system procedure; L89.320 Pressure ulcer of left buttock, unstageable; I73.9 Peripheral vascular disease, unspecified; I10 Essential (primary) hypertension; M05.70 Rheumatoid arthritis with rheumatoid factor of unspecified site without organ or systems involvement; L03.115 Cellulitis of right lower limb | CPT/HCPCS: A6213; G0463 ==

== ENCOUNTER 2024-02-07 01:58 | Day surgery (SDC) | payer MEDICARE | END 2024-02-07 23:02 | disposition home or self-care (01) | LOC: WOUND 01:58 | DX: L89.324 Pressure ulcer of left buttock, stage 4 (principal); L97.213 Non-pressure chronic ulcer of right calf with necrosis of muscle; L97.222 Non-pressure chronic ulcer of left calf with fat layer exposed; E89.820 Postprocedural hematoma of an endocrine system organ or structure following an endocrine system procedure; I73.9 Peripheral vascular disease, unspecified; I10 Essential (primary) hypertension; M05.70 Rheumatoid arthritis with rheumatoid factor of unspecified site without organ or systems involvement; L03.115 Cellulitis of right lower limb | CPT/HCPCS: A6213; G0463 ==

== ENCOUNTER 2024-02-14 03:41 | Day surgery (SDC) | payer MEDICARE | END 2024-02-14 23:05 | disposition home or self-care (01) | LOC: WOUND 03:41 | DX: L03.115 Cellulitis of right lower limb (principal); L89.324 Pressure ulcer of left buttock, stage 4; L97.812 Non-pressure chronic ulcer of other part of right lower leg with fat layer exposed; L97.222 Non-pressure chronic ulcer of left calf with fat layer exposed; E89.820 Postprocedural hematoma of an endocrine system organ or structure following an endocrine system procedure; I73.9 Peripheral vascular disease, unspecified; I10 Essential (primary) hypertension; M05.70 Rheumatoid arthritis with rheumatoid factor of unspecified site without organ or systems involvement; L97.213 Non-pressure chronic ulcer of right calf with necrosis of muscle | CPT/HCPCS: A6196; A6213; G0463 ==

== ENCOUNTER 2024-02-28 03:39 | Day surgery (SDC) | payer MEDICARE | END 2024-02-28 22:41 | disposition home or self-care (01) | LOC: WOUND | DX: L97.213 Non-pressure chronic ulcer of right calf with necrosis of muscle (principal); L97.222 Non-pressure chronic ulcer of left calf with fat layer exposed; L89.324 Pressure ulcer of left buttock, stage 4; L89.320 Pressure ulcer of left buttock, unstageable; E89.820 Postprocedural hematoma of an endocrine system organ or structure following an endocrine system procedure; I73.9 Peripheral vascular disease, unspecified; I10 Essential (primary) hypertension; M05.70 Rheumatoid arthritis with rheumatoid factor of unspecified site without organ or systems involvement; L03.115 Cellulitis of right lower limb | CPT/HCPCS: A6196; A6213; G0463 ==

== ENCOUNTER 2024-03-06 03:30 | Day surgery (SDC) | payer MEDICARE | END 2024-03-06 23:47 | disposition home or self-care (01) | LOC: WOUND 03:30 | DX: L97.213 Non-pressure chronic ulcer of right calf with necrosis of muscle (principal); L89.324 Pressure ulcer of left buttock, stage 4; I73.9 Peripheral vascular disease, unspecified; I10 Essential (primary) hypertension; M05.70 Rheumatoid arthritis with rheumatoid factor of unspecified site without organ or systems involvement | CPT/HCPCS: A6213; G0463 ==

== ENCOUNTER 2024-03-13 01:41 | Day surgery (SDC) | payer MEDICARE | END 2024-03-13 22:37 | disposition home or self-care (01) | LOC: WOUND 01:41 | DX: L97.213 Non-pressure chronic ulcer of right calf with necrosis of muscle (principal); L89.324 Pressure ulcer of left buttock, stage 4; I73.9 Peripheral vascular disease, unspecified; I10 Essential (primary) hypertension; M05.9 Rheumatoid arthritis with rheumatoid factor, unspecified | CPT/HCPCS: A6213; G0463 ==

== ENCOUNTER 2024-03-20 01:54 | Day surgery (SDC) | payer MEDICARE ==
[2024-03-20] MEDS ORDERED: Lidocaine HCl 4% Cream 5 GM ONE (10:35)
== END 2024-03-20 23:32 | disposition home or self-care (01) ==
LOC: WOUND 01:54
DX: L89.324 Pressure ulcer of left buttock, stage 4 (principal); L97.212 Non-pressure chronic ulcer of right calf with fat layer exposed; I73.9 Peripheral vascular disease, unspecified; I10 Essential (primary) hypertension; M05.70 Rheumatoid arthritis with rheumatoid factor of unspecified site without organ or systems involvement
CPT/HCPCS: A6213; A9270; G0463

== ENCOUNTER 2024-04-03 04:50 | Day surgery (SDC) | payer MEDICARE ==
[2024-04-03] MEDS ORDERED: Lidocaine HCl 4% Cream 5 GM ONE (11:00)
== END 2024-04-04 01:42 | disposition home or self-care (01) ==
LOC: WOUND 04:50
DX: L03.115 Cellulitis of right lower limb (principal); L89.324 Pressure ulcer of left buttock, stage 4; L97.213 Non-pressure chronic ulcer of right calf with necrosis of muscle; I73.9 Peripheral vascular disease, unspecified; I10 Essential (primary) hypertension; M05.70 Rheumatoid arthritis with rheumatoid factor of unspecified site without organ or systems involvement
CPT/HCPCS: 93971; A6213; A9270

== ENCOUNTER 2024-04-17 03:31 | Day surgery (SDC) | payer MEDICARE ==
[2024-04-17] MEDS ORDERED: Lidocaine HCl 4% Cream 5 GM ONE (10:31)
== END 2024-04-18 03:04 | disposition home or self-care (01) ==
LOC: WOUND 03:31
DX: L97.212 Non-pressure chronic ulcer of right calf with fat layer exposed (principal); M05.70 Rheumatoid arthritis with rheumatoid factor of unspecified site without organ or systems involvement; I10 Essential (primary) hypertension; M32.9 Systemic lupus erythematosus, unspecified; I73.9 Peripheral vascular disease, unspecified
CPT/HCPCS: A9270; G0463

== ENCOUNTER 2024-04-24 03:45 | Day surgery (SDC) | payer MEDICARE ==
[2024-04-24] MEDS ORDERED: Lidocaine HCl 4% Cream 5 GM ONE ×2 (10:33→10:41)
== END 2024-04-25 01:26 | disposition home or self-care (01) ==
LOC: WOUND 03:45
DX: L03.115 Cellulitis of right lower limb (principal); L89.324 Pressure ulcer of left buttock, stage 4; I10 Essential (primary) hypertension; M06.9 Rheumatoid arthritis, unspecified; L97.213 Non-pressure chronic ulcer of right calf with necrosis of muscle; I73.9 Peripheral vascular disease, unspecified; M05.70 Rheumatoid arthritis with rheumatoid factor of unspecified site without organ or systems involvement
CPT/HCPCS: A6213; A9270

== ENCOUNTER 2024-05-01 02:21 | Day surgery (SDC) | payer MEDICARE ==
[2024-05-01] MEDS ORDERED: Lidocaine HCl 4% Cream 5 GM ONE (10:24)
== END 2024-05-01 22:59 | disposition home or self-care (01) ==
LOC: WOUND 02:21
DX: L03.115 Cellulitis of right lower limb (principal); L97.812 Non-pressure chronic ulcer of other part of right lower leg with fat layer exposed; L89.324 Pressure ulcer of left buttock, stage 4; L97.213 Non-pressure chronic ulcer of right calf with necrosis of muscle; I73.9 Peripheral vascular disease, unspecified; I10 Essential (primary) hypertension; M05.70 Rheumatoid arthritis with rheumatoid factor of unspecified site without organ or systems involvement
CPT/HCPCS: A6213; A9270

== ENCOUNTER 2024-05-08 03:24 | Day surgery (SDC) | payer MEDICARE ==
[2024-05-08] MEDS ORDERED: Lidocaine HCl 4% Cream 5 GM ONE (10:41)
== END 2024-05-08 23:42 | disposition home or self-care (01) ==
LOC: WOUND 03:24
DX: L03.115 Cellulitis of right lower limb (principal); L97.812 Non-pressure chronic ulcer of other part of right lower leg with fat layer exposed; L97.213 Non-pressure chronic ulcer of right calf with necrosis of muscle; L89.324 Pressure ulcer of left buttock, stage 4; I73.9 Peripheral vascular disease, unspecified; I10 Essential (primary) hypertension; M05.70 Rheumatoid arthritis with rheumatoid factor of unspecified site without organ or systems involvement
CPT/HCPCS: A6213; A9270; G0463

== ENCOUNTER 2024-05-22 04:02 | Day surgery (SDC) | payer MEDICARE ==
[2024-05-22] MEDS ORDERED: Lidocaine HCl 4% Cream 5 GM ONE (10:26)
== END 2024-05-23 03:04 | disposition home or self-care (01) ==
LOC: WOUND 04:02
DX: L89.324 Pressure ulcer of left buttock, stage 4 (principal); L97.812 Non-pressure chronic ulcer of other part of right lower leg with fat layer exposed; I73.9 Peripheral vascular disease, unspecified; I10 Essential (primary) hypertension; M05.70 Rheumatoid arthritis with rheumatoid factor of unspecified site without organ or systems involvement
CPT/HCPCS: A6213; A9270

== ENCOUNTER 2024-06-08 02:56 | Day surgery (SDC) | payer MEDICARE | END 2024-06-08 23:21 | disposition home or self-care (01) | LOC: WOUND 02:56 | DX: L03.115 Cellulitis of right lower limb (principal); I10 Essential (primary) hypertension; L97.213 Non-pressure chronic ulcer of right calf with necrosis of muscle; L89.324 Pressure ulcer of left buttock, stage 4; I73.9 Peripheral vascular disease, unspecified; M05.70 Rheumatoid arthritis with rheumatoid factor of unspecified site without organ or systems involvement | CPT/HCPCS: G0463 ==

== ENCOUNTER 2024-06-19 03:50 | Day surgery (SDC) | payer MEDICARE ==
[2024-06-19] MEDS ORDERED: Lidocaine HCl 4% Cream 5 GM ONE (10:19)
== END 2024-06-19 23:00 | disposition home or self-care (01) ==
LOC: WOUND 03:50
DX: L03.115 Cellulitis of right lower limb (principal); L97.812 Non-pressure chronic ulcer of other part of right lower leg with fat layer exposed; I10 Essential (primary) hypertension; M06.9 Rheumatoid arthritis, unspecified; L97.213 Non-pressure chronic ulcer of right calf with necrosis of muscle; L89.324 Pressure ulcer of left buttock, stage 4; I73.9 Peripheral vascular disease, unspecified; M05.70 Rheumatoid arthritis with rheumatoid factor of unspecified site without organ or systems involvement
CPT/HCPCS: A9270

== ENCOUNTER 2024-06-22 03:57 | Day surgery (SDC) | payer MEDICARE ==
[2024-06-22 10:01] VITALS: BP 132/65
[2024-06-22] MEDS ORDERED: Golimumab 130 MG in NS 100 ML IV SCH (10:30)
--- NOTE | 2024-06-22 10:30 | NUR ---
Pt states she has started the process of completing an AD but hasn't finished it yet. Encouraged her to complete her AD.
[2024-06-22 11:18] VITALS: BP 118/64
[2024-06-22] MEDS ORDERED: IBUP200 PO (15:53)
[2024-06-22] MEDS ORDERED: BUTALB-ACETAMI1 EAC6 PO (15:54)
[2024-06-22] MEDS ORDERED: VITAMIN B122500 MC1 PO (15:55)
[2024-06-22] MEDS ORDERED: THERA-D2000 UNIT PO (15:55)
[2024-06-22] MEDS ORDERED: [UNRECOGNIZED DRUG - OTHER] PO (15:56)
[2024-06-22] MEDS ORDERED: HAIR, SKIN AND1 EAC3 PO (15:57)
[2024-06-22] MEDS ORDERED: ASCORBIC ACID500 MG PO (15:57)
[2024-06-22] MEDS ORDERED: DOCU100 PO (15:57)
[2024-06-22] MEDS ORDERED: MIRALAX17 GM PO (15:58)
== END 2024-06-22 11:59 | disposition home or self-care (01) ==
LOC: ATC 03:57
DX: M05.79 Rheumatoid arthritis with rheumatoid factor of multiple sites without organ or systems involvement (principal); M81.0 Age-related osteoporosis without current pathological fracture; Z79.52 Long term (current) use of systemic steroids; Z79.899 Other long term (current) drug therapy; Z88.0 Allergy status to penicillin; Z88.2 Allergy status to sulfonamides; Z88.5 Allergy status to narcotic agent; Z88.8 Allergy status to other drugs, medicaments and biological substances
CPT/HCPCS: 96365; J1602

== ENCOUNTER 2024-06-26 03:37 | Day surgery (SDC) | payer MEDICARE ==
[~2024-06-26 03:37] MED LIST changes: +ASCORBIC ACID500 MG PO; +BUTALB-ACETAMI1 EAC6 PO; +DOCU100 PO; +HAIR, SKIN AND1 EAC3 PO; +IBUP200 PO; +MIRALAX17 GM PO; +THERA-D2000 UNIT PO; +VITAMIN B122500 MC1 PO; +[UNRECOGNIZED DRUG - OTHER] PO
== END 2024-06-26 23:00 | disposition home or self-care (01) ==
LOC: WOUND 03:37
DX: L03.115 Cellulitis of right lower limb (principal); L97.213 Non-pressure chronic ulcer of right calf with necrosis of muscle; I10 Essential (primary) hypertension; L89.324 Pressure ulcer of left buttock, stage 4; I73.9 Peripheral vascular disease, unspecified; M05.70 Rheumatoid arthritis with rheumatoid factor of unspecified site without organ or systems involvement
CPT/HCPCS: G0463

== ENCOUNTER 2024-07-17 04:39 | Day surgery (SDC) | payer MEDICARE ==
[2024-07-17] MEDS ORDERED: Lidocaine HCl 4% Cream 5 GM ONE (10:31)
== END 2024-07-17 23:00 | disposition home or self-care (01) ==
LOC: WOUND 04:39
DX: L03.115 Cellulitis of right lower limb (principal); L97.812 Non-pressure chronic ulcer of other part of right lower leg with fat layer exposed; I10 Essential (primary) hypertension; M05.70 Rheumatoid arthritis with rheumatoid factor of unspecified site without organ or systems involvement; I73.9 Peripheral vascular disease, unspecified; M32.9 Systemic lupus erythematosus, unspecified; Z86.16 Personal history of COVID-19
CPT/HCPCS: A9270

== ENCOUNTER 2024-07-20 03:47 | Day surgery (SDC) | payer MEDICARE ==
[2024-07-20 10:00] VITALS: BP 113/62
[2024-07-20] MEDS ORDERED: GOLIMUMAB IV SCH (10:25)
[2024-07-20] MEDS ORDERED: NS IV SCH (10:25)
[2024-07-20] MEDS ORDERED: TIZA4 PO (11:22)
== END 2024-07-20 11:09 | disposition home or self-care (01) ==
LOC: ATC 03:47
DX: M05.79 Rheumatoid arthritis with rheumatoid factor of multiple sites without organ or systems involvement (principal); M79.7 Fibromyalgia; M81.0 Age-related osteoporosis without current pathological fracture; Z79.52 Long term (current) use of systemic steroids; Z79.899 Other long term (current) drug therapy; Z88.0 Allergy status to penicillin; Z88.6 Allergy status to analgesic agent; Z88.8 Allergy status to other drugs, medicaments and biological substances
CPT/HCPCS: 96365; J1602

== ENCOUNTER 2024-07-24 06:20 | Day surgery (SDC) | payer MEDICARE ==
[~2024-07-24 06:20] MED LIST changes: +TIZA4 PO
[2024-07-24] MEDS ORDERED: Lidocaine HCl 4% Cream 5 GM ONE (10:20)
== END 2024-07-24 23:00 | disposition home or self-care (01) ==
LOC: WOUND 06:20
DX: L03.115 Cellulitis of right lower limb (principal); L97.812 Non-pressure chronic ulcer of other part of right lower leg with fat layer exposed; I10 Essential (primary) hypertension; M05.70 Rheumatoid arthritis with rheumatoid factor of unspecified site without organ or systems involvement; I73.9 Peripheral vascular disease, unspecified; M32.9 Systemic lupus erythematosus, unspecified
CPT/HCPCS: A9270; G0463

== ENCOUNTER 2024-08-14 06:20 | Day surgery (SDC) | payer MEDICARE ==
[2024-08-14] MEDS ORDERED: Lidocaine HCl 4% Cream 5 GM ONE (10:55)
== END 2024-08-14 23:00 | disposition home or self-care (01) ==
LOC: WOUND 06:20
DX: L03.115 Cellulitis of right lower limb (principal); L97.812 Non-pressure chronic ulcer of other part of right lower leg with fat layer exposed; L97.213 Non-pressure chronic ulcer of right calf with necrosis of muscle; I73.9 Peripheral vascular disease, unspecified; I10 Essential (primary) hypertension; M05.70 Rheumatoid arthritis with rheumatoid factor of unspecified site without organ or systems involvement
CPT/HCPCS: A9270; G0463

== ENCOUNTER 2024-09-11 02:08 | Day surgery (SDC) | payer MEDICARE | END 2024-09-11 23:00 | disposition home or self-care (01) | LOC: WOUND 02:08 | DX: L97.212 Non-pressure chronic ulcer of right calf with fat layer exposed (principal); I73.9 Peripheral vascular disease, unspecified; I10 Essential (primary) hypertension; M05.70 Rheumatoid arthritis with rheumatoid factor of unspecified site without organ or systems involvement | CPT/HCPCS: G0463 ==

== ENCOUNTER 2024-09-14 01:40 | Day surgery (SDC) | payer MEDICARE ==
[~2024-09-14] VITALS: Wt 69.0 kg
[2024-09-14 10:02] VITALS: BP 134/70
[2024-09-14] MEDS ORDERED: GOLIMUMAB IV SCH (10:25)
[2024-09-14] MEDS ORDERED: NS IV SCH (10:25)
[2024-09-14] MEDS ORDERED: Pentoxifylline400 MG PO (13:35)
== END 2024-09-14 11:25 | disposition home or self-care (01) ==
LOC: ATC 01:40
DX: M05.79 Rheumatoid arthritis with rheumatoid factor of multiple sites without organ or systems involvement (principal); M81.0 Age-related osteoporosis without current pathological fracture; Z88.6 Allergy status to analgesic agent; Z88.8 Allergy status to other drugs, medicaments and biological substances; Z79.899 Other long term (current) drug therapy
CPT/HCPCS: 96365; J1602

== ENCOUNTER 2024-09-25 04:16 | Day surgery (SDC) | payer MEDICARE ==
[~2024-09-25 04:16] MED LIST changes: +Pentoxifylline400 MG PO
== END 2024-09-25 23:00 | disposition home or self-care (01) ==
LOC: WOUND 04:16
DX: L03.115 Cellulitis of right lower limb (principal); L97.812 Non-pressure chronic ulcer of other part of right lower leg with fat layer exposed; I73.9 Peripheral vascular disease, unspecified; I10 Essential (primary) hypertension; M05.70 Rheumatoid arthritis with rheumatoid factor of unspecified site without organ or systems involvement; M32.9 Systemic lupus erythematosus, unspecified
CPT/HCPCS: A6196; G0463

== ENCOUNTER 2024-10-09 04:09 | Day surgery (SDC) | payer MEDICARE | END 2024-10-09 23:00 | disposition home or self-care (01) | LOC: WOUND 04:09 | DX: L97.212 Non-pressure chronic ulcer of right calf with fat layer exposed (principal); I73.9 Peripheral vascular disease, unspecified; I10 Essential (primary) hypertension; M05.70 Rheumatoid arthritis with rheumatoid factor of unspecified site without organ or systems involvement | CPT/HCPCS: A6213; G0463 ==

== ENCOUNTER 2024-10-23 03:36 | Day surgery (SDC) | payer MEDICARE ==
[2024-10-23] MEDS ORDERED: Lidocaine HCl 4% Cream 5 GM ONE (10:58)
== END 2024-10-23 23:00 | disposition home or self-care (01) ==
LOC: WOUND 03:36
DX: L03.115 Cellulitis of right lower limb (principal); L97.812 Non-pressure chronic ulcer of other part of right lower leg with fat layer exposed; I10 Essential (primary) hypertension; I73.9 Peripheral vascular disease, unspecified; M05.70 Rheumatoid arthritis with rheumatoid factor of unspecified site without organ or systems involvement
CPT/HCPCS: A9270; G0463

== ENCOUNTER 2024-11-06 02:55 | Day surgery (SDC) | payer MEDICARE | END 2024-11-06 23:00 | disposition home or self-care (01) | LOC: WOUND 02:55 | DX: L03.115 Cellulitis of right lower limb (principal); I10 Essential (primary) hypertension; I73.9 Peripheral vascular disease, unspecified; L97.213 Non-pressure chronic ulcer of right calf with necrosis of muscle; M05.70 Rheumatoid arthritis with rheumatoid factor of unspecified site without organ or systems involvement | CPT/HCPCS: G0463 ==

== ENCOUNTER 2024-11-09 08:25 | Day surgery (SDC) | payer MEDICARE ==
[~2024-11-09] VITALS: Wt 68.4 kg
[2024-11-09 09:50] VITALS: BP 129/71
[2024-11-09] MEDS ORDERED: GOLIMUMAB IV SCH (10:05)
[2024-11-09] MEDS ORDERED: NS IV SCH (10:05)
[2024-11-09 10:20] LABS: Hematocrit 40.3 % (33.0-51.0); Hemoglobin 13.2 g/dL (11.5-16.0); Mean Corpuscular HGB 31.7 pg (26.0-34.0); Mean Corpuscular HGB Conc 32.8 g/dL (31.5-36.5); Mean Corpuscular Volume 97 fL (80-100); Mean Platelet Volume 11.3 fL (9.1-12.4); Platelet Count 237 K/mm3 (150-400); RDW Coefficient Variation 14.1 % (11.7-14.2); RDW Standard Deviation 50.5 fL (35.1-46.3); Red Blood Cell Count 4.16 M/mm3 (3.80-5.20); White Blood Cell Count 7.57 K/mm3 (4.00-11.30)
[2024-11-09 10:43] LABS: BASOPHILS PERCENT MAN 0 % (0-2); EOSINOPHILS ABSOLUTE MAN 0.22 K/mm3 (0.00-0.68); EOSINOPHILS PERCENT MAN 3 % (0-6); LYMPHOCYTES ABSOLUTE MAN 1.66 K/mm3 (0.84-5.20); LYMPHOCYTES PERCENT MAN 22 % (21-46); METAMYELOCYTE ABSOLUTE MAN 0.07 K/mm3 (0.00-0.00); METAMYELOCYTE PERCENT MAN 1 % (0-0); MONOCYTES PERCENT MAN 12 % (4-13); MYELOCYTE ABSOLUTE MAN 0.07 K/mm3 (0.00-0.00); MYELOCYTE PERCENT MAN 1 % (0-0); NEUTROPHILS ABSOLUTE MAN 4.61 K/mm3 (1.96-9.15); SEG NEUTROPHILS PERCENT MAN 61 % (41-73); TOTAL CELLS COUNTED 100
[2024-11-09 10:44] LABS: C-REACTIVE PROTEIN, EXT RANGE 3.74 mg/dL (0.000-0.300)
[2024-11-09 10:46] LABS: Albumin, Blood 3.6 g/dL (3.4-5.0); Albumin/Globulin Ratio 1.2 (0.8-1.8); Bilirubin, Total 0.3 mg/dL (0.1-1.0); Bun/Creatinine Ratio 31.7 (12.0-20.0); Calcium, Blood 9.3 mg/dL (8.5-10.1); Creatinine, Blood 0.57 mg/dL (0.40-1.00); Globulin, Blood 3.1 g/dL (2.2-4.0); Total Protein, Blood 6.7 g/dL (6.4-8.2)
--- NOTE | 2024-11-09 11:28 | NUR ---
LAB RESULTS, INTERVENTIONS, AND EMAR INFORMATION FOR TODAY'S VISIT FAXED TO DR PRESCOTT PER MD ORDERED REQUEST
== END 2024-11-09 10:58 | disposition home or self-care (01) ==
LOC: ATC 08:25
PROVIDERS: Internal Medicine Rheumatology
DX: M05.79 Rheumatoid arthritis with rheumatoid factor of multiple sites without organ or systems involvement (principal); Z88.1 Allergy status to other antibiotic agents; Z88.2 Allergy status to sulfonamides; Z88.8 Allergy status to other drugs, medicaments and biological substances; Z79.899 Other long term (current) drug therapy
CPT/HCPCS: 80053; 85025; 86140; 96365; J1602

== ENCOUNTER 2024-11-20 05:03 | Day surgery (SDC) | payer MEDICARE ==
[2024-11-20] MEDS ORDERED: Lidocaine HCl 4% Cream 5 GM ONE (10:48)
== END 2024-11-20 23:00 | disposition home or self-care (01) ==
LOC: WOUND 05:03
DX: L03.115 Cellulitis of right lower limb (principal); L97.213 Non-pressure chronic ulcer of right calf with necrosis of muscle; I10 Essential (primary) hypertension; I73.9 Peripheral vascular disease, unspecified; M05.70 Rheumatoid arthritis with rheumatoid factor of unspecified site without organ or systems involvement
CPT/HCPCS: A9270; G0463

== ENCOUNTER 2024-12-18 01:37 | Day surgery (SDC) | payer MEDICARE | END 2024-12-18 23:00 | disposition home or self-care (01) | LOC: WOUND 01:37 | DX: L97.212 Non-pressure chronic ulcer of right calf with fat layer exposed (principal); I73.9 Peripheral vascular disease, unspecified; I10 Essential (primary) hypertension; M05.70 Rheumatoid arthritis with rheumatoid factor of unspecified site without organ or systems involvement | CPT/HCPCS: G0463 ==

== ENCOUNTER 2025-01-22 01:39 | Day surgery (SDC) | payer MEDICARE ==
[2025-01-22] MEDS ORDERED: Lidocaine HCl 4% Cream 5 GM ONE (10:31)
== END 2025-01-22 23:00 | disposition home or self-care (01) ==
LOC: WOUND 01:39
DX: L97.212 Non-pressure chronic ulcer of right calf with fat layer exposed (principal); I73.9 Peripheral vascular disease, unspecified; I10 Essential (primary) hypertension; M05.70 Rheumatoid arthritis with rheumatoid factor of unspecified site without organ or systems involvement
CPT/HCPCS: A9270

== ENCOUNTER 2025-01-29 05:55 | Day surgery (SDC) | payer MEDICARE | END 2025-01-29 23:00 | disposition home or self-care (01) | LOC: WOUND 05:55 | DX: L97.812 Non-pressure chronic ulcer of other part of right lower leg with fat layer exposed (principal); I73.9 Peripheral vascular disease, unspecified; I10 Essential (primary) hypertension; M05.70 Rheumatoid arthritis with rheumatoid factor of unspecified site without organ or systems involvement | CPT/HCPCS: G0463 ==

== ENCOUNTER 2025-03-01 01:44 | Day surgery (SDC) | payer MEDICARE ==
[~2025-03-01] VITALS: Wt 70.7 kg
[2025-03-01 13:55] VITALS: BP 120/71
[2025-03-01] MEDS ORDERED: GOLIMUMAB IV SCH (14:20)
[2025-03-01] MEDS ORDERED: NS IV SCH (14:20)
[2025-03-01 14:31] LABS: BASOPHILS ABSOLUTE AUTO 0.08 K/mm3 (0.00-0.23); BASOPHILS PERCENT AUTO 1 % (0-2); EOSINOPHILS ABSOLUTE AUTO 0.33 K/mm3 (0.00-0.68); EOSINOPHILS PERCENT AUTO 3 % (0-6); Hematocrit 40.5 % (33.0-51.0); Hemoglobin 13.2 g/dL (11.5-16.0); IMMATURE GRAN ABSOLUTE AUTO 0.51 K/mm3 (0.00-0.10); IMMATURE GRAN PERCENT AUTO 5 % (0-1); LYMPHOCYTES ABSOLUTE AUTO 0.78 K/mm3 (0.84-5.20); LYMPHOCYTES PERCENT AUTO 8 % (21-46); MONOCYTES ABSOLUTE AUTO 0.39 K/mm3 (0.16-1.47); MONOCYTES PERCENT AUTO 4 % (4-13); Mean Corpuscular HGB Conc 32.6 g/dL (31.5-36.5); Mean Corpuscular Volume 99 fL (80-100); NEUTROPHILS ABSOLUTE AUTO 7.72 K/mm3 (1.96-9.15); NEUTROPHILS PERCENT AUTO 79 % (41-73); NRBC ABSOLUTE 0.00 K/mm3 (0.00-0.02); NRBC Auto 0.0 /100 WBC (0.0-0.2); Platelet Count 229 K/mm3 (150-400); RDW Coefficient Variation 14.2 % (11.7-14.2); RDW Standard Deviation 51.5 fL (35.1-46.3)
[2025-03-01 14:56] LABS: C-REACTIVE PROTEIN, EXT RANGE 0.98 mg/dL (0.000-0.300)
[2025-03-01 14:57] LABS: Alanine Aminotransfer (ALT/SGP 26.0 U/L (12-78); Albumin, Blood 3.5 g/dL (3.4-5.0); Albumin/Globulin Ratio 1.1 (0.8-1.8); Anion Gap 8.0 mmol/L (3-11); Aspartate Aminotrans (AST/SGOT 15.0 U/L (12-37); Bilirubin, Total 0.3 mg/dL (0.1-1.0); Blood Urea Nitrogen 19.0 mg/dL (8-24); CO2, Blood 29.0 mmol/L (21-32); Calcium, Blood 8.5 mg/dL (8.5-10.1); Chloride, Blood 106.0 mmol/L (98-108); Creatinine, Blood 0.58 mg/dL (0.40-1.00); Globulin, Blood 3.2 g/dL (2.2-4.0); Glucose, Blood 129.0 mg/dL (70-99); Potassium, Blood 3.6 mmol/L (3.5-5.5); Sodium, Blood 139.0 mmol/L (136-145); Total Protein, Blood 6.7 g/dL (6.4-8.2)
== END 2025-03-01 15:02 | disposition home or self-care (01) ==
LOC: ATC 01:44
PROVIDERS: Internal Medicine Rheumatology
DX: M05.79 Rheumatoid arthritis with rheumatoid factor of multiple sites without organ or systems involvement (principal); M81.0 Age-related osteoporosis without current pathological fracture; Z79.899 Other long term (current) drug therapy; Z88.8 Allergy status to other drugs, medicaments and biological substances; Z88.0 Allergy status to penicillin
CPT/HCPCS: 80053; 85025; 86140; 96365; J1602

== ENCOUNTER 2025-03-05 00:42 | Day surgery (SDC) | payer MEDICARE | END 2025-03-05 23:00 | disposition home or self-care (01) | LOC: WOUND 00:42 | DX: L03.115 Cellulitis of right lower limb (principal); L97.812 Non-pressure chronic ulcer of other part of right lower leg with fat layer exposed; I73.9 Peripheral vascular disease, unspecified; I10 Essential (primary) hypertension; M05.70 Rheumatoid arthritis with rheumatoid factor of unspecified site without organ or systems involvement; M32.9 Systemic lupus erythematosus, unspecified ==

== ENCOUNTER 2025-03-19 02:16 | Day surgery (SDC) | payer MEDICARE | END 2025-03-19 23:00 | disposition home or self-care (01) | LOC: WOUND 02:16 | DX: L97.212 Non-pressure chronic ulcer of right calf with fat layer exposed (principal); I73.9 Peripheral vascular disease, unspecified; I10 Essential (primary) hypertension; M05.70 Rheumatoid arthritis with rheumatoid factor of unspecified site without organ or systems involvement | CPT/HCPCS: G0463 ==

== ENCOUNTER 2025-04-09 00:29 | Day surgery (SDC) | payer MEDICARE ==
[2025-04-09] MEDS ORDERED: Lidocaine HCl 4% Cream 5 GM ONE (10:28)
== END 2025-04-09 23:00 | disposition home or self-care (01) ==
LOC: WOUND 00:29
DX: L03.115 Cellulitis of right lower limb (principal); L97.212 Non-pressure chronic ulcer of right calf with fat layer exposed; L89.152 Pressure ulcer of sacral region, stage 2; I10 Essential (primary) hypertension; M32.9 Systemic lupus erythematosus, unspecified; I73.9 Peripheral vascular disease, unspecified; M05.70 Rheumatoid arthritis with rheumatoid factor of unspecified site without organ or systems involvement
CPT/HCPCS: A6213; A9270; G0463

== ENCOUNTER 2025-04-26 00:19 | Day surgery (SDC) | payer MEDICARE ==
[~2025-04-26] VITALS: Wt 68.7 kg
[2025-04-26 13:52] VITALS: BP 126/66
[2025-04-26] MEDS ORDERED: CENTRUM SILVER1 EAC2 PO (13:53)
[2025-04-26] MEDS ORDERED: NS IV SCH (14:35)
[2025-04-26] MEDS ORDERED: GOLIMUMAB IV SCH (14:35)
== END 2025-04-26 15:54 | disposition home or self-care (01) ==
LOC: ATC 00:19
DX: M05.79 Rheumatoid arthritis with rheumatoid factor of multiple sites without organ or systems involvement (principal); M81.0 Age-related osteoporosis without current pathological fracture; Z88.2 Allergy status to sulfonamides; Z88.8 Allergy status to other drugs, medicaments and biological substances; Z79.899 Other long term (current) drug therapy
CPT/HCPCS: 96365; J1602

== ENCOUNTER 2025-05-14 00:58 | Day surgery (SDC) | payer MEDICARE ==
[~2025-05-14 00:58] MED LIST changes: +CENTRUM SILVER1 EAC2 PO
[2025-05-14] MEDS ORDERED: Lidocaine HCl 4% Cream 5 GM ONE (10:41)
== END 2025-05-14 23:00 | disposition home or self-care (01) ==
LOC: WOUND 00:58
DX: L03.115 Cellulitis of right lower limb (principal); S81.801A Unspecified open wound, right lower leg, initial encounter; I10 Essential (primary) hypertension; I73.9 Peripheral vascular disease, unspecified; M05.9 Rheumatoid arthritis with rheumatoid factor, unspecified
CPT/HCPCS: A6213; A9270

== ENCOUNTER 2025-05-21 00:32 | Day surgery (SDC) | payer MEDICARE ==
[2025-05-21] MEDS ORDERED: Lidocaine HCl 4% Cream 5 GM ONE (10:54)
== END 2025-05-21 23:00 | disposition home or self-care (01) ==
LOC: WOUND 00:32
DX: S81.801A Unspecified open wound, right lower leg, initial encounter (principal); X58.XXXA Exposure to other specified factors, initial encounter; L97.812 Non-pressure chronic ulcer of other part of right lower leg with fat layer exposed; L03.115 Cellulitis of right lower limb; I73.9 Peripheral vascular disease, unspecified; I10 Essential (primary) hypertension; M05.70 Rheumatoid arthritis with rheumatoid factor of unspecified site without organ or systems involvement
CPT/HCPCS: A9270

== ENCOUNTER 2025-05-28 02:23 | Day surgery (SDC) | payer MEDICARE ==
[2025-05-28] MEDS ORDERED: Lidocaine HCl 4% Cream 5 GM ONE (10:52)
== END 2025-05-28 23:00 | disposition home or self-care (01) ==
LOC: WOUND 02:23
DX: S81.811A Laceration without foreign body, right lower leg, initial encounter (principal); X58.XXXA Exposure to other specified factors, initial encounter; L97.812 Non-pressure chronic ulcer of other part of right lower leg with fat layer exposed; L03.115 Cellulitis of right lower limb; I73.9 Peripheral vascular disease, unspecified; I10 Essential (primary) hypertension; M05.70 Rheumatoid arthritis with rheumatoid factor of unspecified site without organ or systems involvement
CPT/HCPCS: A9270

== ENCOUNTER 2025-06-05 03:18 | Day surgery (SDC) | payer MEDICARE ==
[~2025-06-05 03:18] MED LIST changes: +Lidocaine HCl 4% Cream 5 GM ONE
== END 2025-06-05 23:00 | disposition home or self-care (01) ==
LOC: WOUND 03:18
DX: L97.812 Non-pressure chronic ulcer of other part of right lower leg with fat layer exposed (principal); I73.9 Peripheral vascular disease, unspecified; I10 Essential (primary) hypertension
CPT/HCPCS: A6196; A9270

== ENCOUNTER 2025-06-18 03:05 | Day surgery (SDC) | payer MEDICARE ==
[~2025-06-18 03:05] MED LIST changes: -Lidocaine HCl 4% Cream 5 GM ONE
[2025-06-18] MEDS ORDERED: Lidocaine HCl 4% Cream 5 GM ONE (10:56)
== END 2025-06-18 23:00 | disposition home or self-care (01) ==
LOC: WOUND 03:05
DX: S81.811A Laceration without foreign body, right lower leg, initial encounter (principal); X58.XXXA Exposure to other specified factors, initial encounter; L03.115 Cellulitis of right lower limb; L97.812 Non-pressure chronic ulcer of other part of right lower leg with fat layer exposed; I73.9 Peripheral vascular disease, unspecified; I10 Essential (primary) hypertension; M05.9 Rheumatoid arthritis with rheumatoid factor, unspecified
CPT/HCPCS: A6196; A9270

== ENCOUNTER 2025-06-25 06:45 | Day surgery (SDC) | payer MEDICARE ==
[~2025-06-25 06:45] MED LIST changes: -FURO20 PO
[2025-06-25] MEDS ORDERED: Lidocaine HCl 4% Cream 5 GM ONE (10:49)
[2025-06-25] MEDS ORDERED: FURO20 PO (21:40)
== END 2025-06-25 23:00 | disposition home or self-care (01) ==
LOC: WOUND 06:45
DX: L03.115 Cellulitis of right lower limb (principal); L97.812 Non-pressure chronic ulcer of other part of right lower leg with fat layer exposed; S81.801D Unspecified open wound, right lower leg, subsequent encounter; X58.XXXD Exposure to other specified factors, subsequent encounter; I10 Essential (primary) hypertension; I73.9 Peripheral vascular disease, unspecified; M05.70 Rheumatoid arthritis with rheumatoid factor of unspecified site without organ or systems involvement; M32.9 Systemic lupus erythematosus, unspecified
CPT/HCPCS: A6196; A9270; G0463

== ENCOUNTER 2025-06-25 14:57 | Emergency (ER) | payer MEDICARE ==
[~2025-06-25] VITALS: Ht 149.9 cm; Wt 70.3 kg
[2025-06-25] MEDS ORDERED: FURO20 PO (21:40)
[2025-06-25 21:59] VITALS: BP 146/86
== END 2025-06-25 22:08 | disposition home or self-care (01) ==
LOC: ER 14:57
DX: R06.02 Shortness of breath (principal); R06.2 Wheezing; Z88.0 Allergy status to penicillin; Z88.2 Allergy status to sulfonamides; Z88.6 Allergy status to analgesic agent; Z88.8 Allergy status to other drugs, medicaments and biological substances; Z91.018 Allergy to other foods; Z79.899 Other long term (current) drug therapy
CPT/HCPCS: 99283

== ENCOUNTER → 2025-06-25 | Outpatient (CLI) | payer MEDICARE ==
[~2025-06-25] MED LIST changes: +FURO20 PO
[2025-06-25 13:36] LABS: BASOPHILS ABSOLUTE AUTO 0.07 K/mm3 (0.00-0.23); BASOPHILS PERCENT AUTO 1 % (0-2); EOSINOPHILS ABSOLUTE AUTO 0.20 K/mm3 (0.00-0.68); EOSINOPHILS PERCENT AUTO 2 % (0-6); Hematocrit 38.7 % (33.0-51.0); Hemoglobin 12.4 g/dL (11.5-16.0); IMMATURE GRAN ABSOLUTE AUTO 0.44 K/mm3 (0.00-0.10); IMMATURE GRAN PERCENT AUTO 5 % (0-1); LYMPHOCYTES ABSOLUTE AUTO 1.26 K/mm3 (0.84-5.20); LYMPHOCYTES PERCENT AUTO 14 % (21-46); MONOCYTES ABSOLUTE AUTO 0.31 K/mm3 (0.16-1.47); MONOCYTES PERCENT AUTO 4 % (4-13); Mean Corpuscular HGB Conc 32.0 g/dL (31.5-36.5); Mean Corpuscular Volume 101 fL (80-100); NEUTROPHILS ABSOLUTE AUTO 6.69 K/mm3 (1.96-9.15); NEUTROPHILS PERCENT AUTO 75 % (41-73); NRBC ABSOLUTE 0.00 K/mm3 (0.00-0.02); NRBC Auto 0.0 /100 WBC (0.0-0.2); Platelet Count 198 K/mm3 (150-400); RDW Coefficient Variation 14.2 % (11.7-14.2); RDW Standard Deviation 52.4 fL (35.1-46.3)
[2025-06-25 13:47] LABS: Alanine Aminotransfer (ALT/SGP 26.0 U/L (12-78); Albumin, Blood 3.6 g/dL (3.4-5.0); Albumin/Globulin Ratio 1.1 (0.8-1.8); Anion Gap 13.0 mmol/L (3-11); Aspartate Aminotrans (AST/SGOT 19.0 U/L (12-37); Bilirubin, Total 0.2 mg/dL (0.1-1.0); Blood Urea Nitrogen 25.0 mg/dL (8-24); CO2, Blood 29.0 mmol/L (21-32); Calcium, Blood 9.3 mg/dL (8.5-10.1); Chloride, Blood 107.0 mmol/L (98-108); Creatinine, Blood 0.91 mg/dL (0.40-1.00); Globulin, Blood 3.3 g/dL (2.2-4.0); Glucose, Blood 124.0 mg/dL (70-99); Potassium, Blood 4.1 mmol/L (3.5-5.5); Sodium, Blood 145.0 mmol/L (136-145); Total Protein, Blood 6.9 g/dL (6.4-8.2)
== END ==
LOC: LAB SHORT 13:32 → LAB 13:32
PROVIDERS: Physician Assistant
DX: R06.02 Shortness of breath (principal)
CPT/HCPCS: 80053; 83880; 84484; 85025; 85379

== ENCOUNTER → 2025-06-29 | Outpatient (CLI) | payer MEDICARE ==
[~2025-06-29] MED LIST changes: +FURO20 PO
[2025-06-29 15:16] LABS: BASOPHILS ABSOLUTE AUTO 0.05 K/mm3 (0.00-0.23); BASOPHILS PERCENT AUTO 1 % (0-2); EOSINOPHILS ABSOLUTE AUTO 0.09 K/mm3 (0.00-0.68); EOSINOPHILS PERCENT AUTO 1 % (0-6); Hematocrit 41.1 % (33.0-51.0); Hemoglobin 13.1 g/dL (11.5-16.0); IMMATURE GRAN ABSOLUTE AUTO 0.38 K/mm3 (0.00-0.10); IMMATURE GRAN PERCENT AUTO 4 % (0-1); LYMPHOCYTES ABSOLUTE AUTO 0.96 K/mm3 (0.84-5.20); LYMPHOCYTES PERCENT AUTO 10 % (21-46); MONOCYTES ABSOLUTE AUTO 0.28 K/mm3 (0.16-1.47); MONOCYTES PERCENT AUTO 3 % (4-13); Mean Corpuscular HGB Conc 31.9 g/dL (31.5-36.5); Mean Corpuscular Volume 100 fL (80-100); NEUTROPHILS ABSOLUTE AUTO 7.91 K/mm3 (1.96-9.15); NEUTROPHILS PERCENT AUTO 82 % (41-73); NRBC ABSOLUTE 0.00 K/mm3 (0.00-0.02); NRBC Auto 0.0 /100 WBC (0.0-0.2); Platelet Count 229 K/mm3 (150-400); RDW Coefficient Variation 13.9 % (11.7-14.2); RDW Standard Deviation 51.7 fL (35.1-46.3)
[2025-06-29 15:27] LABS: Alanine Aminotransfer (ALT/SGP 27.0 U/L (12-78); Albumin, Blood 3.7 g/dL (3.4-5.0); Albumin/Globulin Ratio 1.0 (0.8-1.8); Anion Gap 13.0 mmol/L (3-11); Aspartate Aminotrans (AST/SGOT 20.0 U/L (12-37); Bilirubin, Total 0.2 mg/dL (0.1-1.0); Blood Urea Nitrogen 28.0 mg/dL (8-24); CO2, Blood 33.0 mmol/L (21-32); Calcium, Blood 9.5 mg/dL (8.5-10.1); Chloride, Blood 106.0 mmol/L (98-108); Creatinine, Blood 0.89 mg/dL (0.40-1.00); Globulin, Blood 3.6 g/dL (2.2-4.0); Glucose, Blood 139.0 mg/dL (70-99); Potassium, Blood 3.7 mmol/L (3.5-5.5); Sodium, Blood 148.0 mmol/L (136-145); Total Protein, Blood 7.3 g/dL (6.4-8.2)
== END ==
LOC: LAB 15:11 → LAB SHORT 15:11
PROVIDERS: Physician Assistant
DX: R41.0 Disorientation, unspecified (principal)
CPT/HCPCS: 80053; 83880; 84484; 85025